=== PATIENT | male | born 1960 | race Caucasian/White ===

== ENCOUNTER → 2021-12-22 | Outpatient (CLI) | payer OTHER, MEDICAID ==
[~2021-12-22] MED LIST: ACET-654 PO; ADV250INH INH; ALBU20IN NEB; AMOX500T PO; BACL1TAB9 PO; CANA10002 PR; CARD120T4 PO; DOCU250C7 PO; IPRA2IN NEB; KLOR1TAB77 PO; LASI40TA PO; LIAL1.2T PO; LYRI150C PO; MAGN250T11 PO; MICR10CA PO; MS C200T PO; NICO14DI20 TD; NICO21DI3 EXT; NITR0.4S SL; NYST50SS OR; POTA10IN2 IV; POTA40IN IV; PRED-351 FT; PRED-351 OR; PRED10TA2 PO; REQU1TAB16 PO; SPIRIVA INH; VENTOLIN ROTAHALER
== END ==
LOC: M WUC 14:28
PROVIDERS: ATTEND Nurse Practitioner Family
DX: R07.81 Pleurodynia (principal)

== ENCOUNTER 2022-02-08 12:16 | Inpatient (IN) | payer OTHER ==
[~2022-02-08] VITALS: Ht 182.9 cm; Wt 90.9 kg
[2022-02-08] MEDS ORDERED: MORPHINE 2 MG/ML 1ML VIAL IV PRN ×2 (13:50→15:15)
[2022-02-08 14:18] LABS: HEMATOCRIT 41.7 % (42.0-52.0); HEMOGLOBIN 13.7 g/dl (13.5-17.5); MEAN CORPUSCULAR HEMOGLOBIN 30.2 pg (27.0-33.0); MEAN CORPUSCULAR HGB CONC 32.9 g/dl (32.0-36.5); MEAN CORPUSCULAR VOLUME 92.1 fl (80.0-96.0); PLATELET COUNT, AUTOMATED 329 10^3/uL (150-450); RED BLOOD COUNT 4.53 10^6/uL (4.30-6.10); WHITE BLOOD COUNT 14.8 10^3/uL (4.0-10.0)
[2022-02-08 14:42] LABS: RSV AMPLIFICATION NEGATIVE (NEGATIVE)
[2022-02-08 14:47] LABS: BLOOD UREA NITROGEN 15 MG/DL (7-18); CALCIUM LEVEL 9.4 MG/DL (8.8-10.2); CARBON DIOXIDE LEVEL 28 MEQ/L (21-32); CHLORIDE LEVEL 99 MEQ/L (98-107); CREATININE FOR GFR 0.51 MG/DL (0.70-1.30); GLOMERULAR FILTRATION RATE > 60.0 (>49); GLUCOSE, FASTING 105 MG/DL (70-100); POTASSIUM SERUM 4.1 MEQ/L (3.5-5.1); SODIUM LEVEL 132 MEQ/L (136-145)
[2022-02-08] MEDS ORDERED: NICOTINE 21MG/24HR 1 EA TRANSDERMAL TD ONE (15:15)
[2022-02-08] MEDS ORDERED: ALBU8.5H INH (16:12)
[2022-02-08] MEDS ORDERED: ROPI3TAB3 PO (16:12)
[2022-02-08] MEDS ORDERED: DOCU250C7 PO (16:12)
[2022-02-08] MEDS ORDERED: FLUT1BLS6 INH (16:12)
[2022-02-08] MEDS ORDERED: OMEP40CA5 PO (16:12)
[2022-02-08] MEDS ORDERED: ALBU2.5V10 INH (16:12)
[2022-02-08] MEDS ORDERED: GAVIPOW PO (16:12)
[2022-02-08] MEDS ORDERED: MESA0.37 PO (16:12)
[2022-02-08] MEDS ORDERED: TRAZ1TAB14 PO (16:12)
[2022-02-08] MEDS ORDERED: DILT240C28 PO (16:12)
[2022-02-08] MEDS ORDERED: POTA-151 PO (16:12)
[2022-02-08] MEDS ORDERED: DULO1CAP6 PO (16:12)
[2022-02-08] MEDS ORDERED: FINA5TAB2 PO (16:12)
[2022-02-08] MEDS ORDERED: HYDR-3363 PO (16:12)
[2022-02-08] MEDS ORDERED: TAMS1CAP17 PO (16:12)
[2022-02-08] MEDS ORDERED: ATOR1TAB21 PO (16:12)
[2022-02-08] MEDS ORDERED: PREG200C PO (16:12)
[2022-02-08] MEDS ORDERED: BUPR1FIL37 SL (16:12)
[2022-02-08] MEDS ORDERED: BUPR1FIL35 SL (16:12)
[2022-02-08] MEDS ORDERED: HOME MED LIST COMPLETE! XX SCH (16:15)
[2022-02-08] MEDS ORDERED: ALBUTEROL 90 MCG/ACT 8GM HFA INHALER INH PRN (16:20)
[2022-02-08] MEDS ORDERED: ALBUTEROL SULFATE 2.5 MG/0.5 ML INH NEB SOLN NEB PRN (16:35)
[2022-02-08] MEDS: MORPHINE 2 MG/ML 1ML VIAL IV PRN (17:23)
[2022-02-08 17:31] LABS: INR 1.02; PROTHROMBIN TIME 13.8 SECONDS (12.7-14.5)
[2022-02-08 17:50] VITALS: BP 126/81
[2022-02-08] MEDS: NS 1,000 ML IV SCH (18:07)
[2022-02-08] MEDS: rOPINIRole 1MG TAB PO SCH (18:07)
[2022-02-08] MEDS: ACETAMINOPHEN TAB 650MG DOSE (2X325MG) PO PRN (18:43)
[2022-02-08] MEDS: ADVAIR HFA 230/21MCG INHALER INH SCH (20:45)
[2022-02-08] MEDS: DOCUSATE SOD LIQ 100MG/10ML UDC PO SCH (20:51)
[2022-02-08] MEDS: PREGABALIN 100 MG CAP (LYRICA) PO SCH (20:52)
[2022-02-08] MEDS: TAMSULOSIN 0.4 MG CAP PO SCH (20:52)
[2022-02-08] MEDS: traZODone 50 MG TAB PO SCH (20:52)
[2022-02-08 22:00] VITALS: BP 124/66
[2022-02-09] VITALS (7 sets, daily range): BP systolic 90–132; BP diastolic 52–73
[2022-02-09] MEDS: MORPHINE 2 MG/ML 1ML VIAL IV PRN ×3 (02:52→20:26)
[2022-02-09] MEDS: NS 1,000 ML IV SCH ×2 (05:52→18:57)
[2022-02-09 06:43] LABS: HEMATOCRIT 40.6 % (42.0-52.0); HEMOGLOBIN 13.2 g/dl (13.5-17.5); MEAN CORPUSCULAR HEMOGLOBIN 30.3 pg (27.0-33.0); MEAN CORPUSCULAR HGB CONC 32.5 g/dl (32.0-36.5); MEAN CORPUSCULAR VOLUME 93.1 fl (80.0-96.0); PLATELET COUNT, AUTOMATED 294 10^3/uL (150-450); RED BLOOD COUNT 4.36 10^6/uL (4.30-6.10); WHITE BLOOD COUNT 12.6 10^3/uL (4.0-10.0)
[2022-02-09 07:19] LABS: ALBUMIN 2.8 GM/DL (3.2-5.2); ALT/SGPT 18 U/L (12-78); BILIRUBIN,TOTAL 0.6 MG/DL (0.2-1.0); BLOOD UREA NITROGEN 10 MG/DL (7-18); CALCIUM LEVEL 8.7 MG/DL (8.8-10.2); CARBON DIOXIDE LEVEL 30 MEQ/L (21-32); CHLORIDE LEVEL 103 MEQ/L (98-107); CREATININE FOR GFR 0.47 MG/DL (0.70-1.30); GLOMERULAR FILTRATION RATE > 60.0 (>49); GLUCOSE, FASTING 109 MG/DL (70-100); SODIUM LEVEL 138 MEQ/L (136-145)
[2022-02-09] MEDS: ADVAIR HFA 230/21MCG INHALER INH SCH ×2 (07:33→20:56)
[2022-02-09] MEDS: DOCUSATE SOD LIQ 100MG/10ML UDC PO SCH ×4 (08:31→20:29)
[2022-02-09] MEDS: FINASTERIDE 5MG TAB PO SCH (08:31)
[2022-02-09] MEDS: MIRALAX *UNIT DOSE* 17GM PACKET PO SCH (08:33)
[2022-02-09] MEDS: TAMSULOSIN 0.4 MG CAP PO SCH ×2 (08:33→20:30)
[2022-02-09] MEDS: OMEPRAZOLE 20MG CAP PO SCH (08:33)
[2022-02-09] MEDS: PREGABALIN 100 MG CAP (LYRICA) PO SCH ×3 (08:33→20:30)
[2022-02-09] MEDS: ATORVASTATIN 20 MG TAB PO SCH (08:33)
[2022-02-09] MEDS: DULoxetine 30MG CAPSULE (CYMBALTA) PO SCH (08:33)
[2022-02-09] MEDS ORDERED: MIRALAX *UNIT DOSE* 17GM PACKET PO SCH (09:00)
[2022-02-09] MEDS ORDERED: fentaNYL 100 MCG/2 ML INJECTION As Ordered ONE (13:13)
[2022-02-09] MEDS ORDERED: MIDAZOLAM INJ 2MG/2ML VIAL (J2250 PER 1MG) As Ordered ONE (13:13)
[2022-02-09] MEDS ORDERED: dexameTHASONE 4 MG/ML 1ML VIAL (J1100 PER 1MG) As Ordered ONE (13:14)
[2022-02-09] MEDS ORDERED: propofoL 200 MG/20 ML VIAL As Ordered ONE ×6 (13:14→17:09)
[2022-02-09] MEDS ORDERED: ONDANSETRON 4MG 2ML VIAL As Ordered ONE (13:14)
[2022-02-09] MEDS ORDERED: LIDOCAINE 2% 100MG/5ML SDV (FOR ANES.) As Ordered ONE (13:14)
[2022-02-09] MEDS ORDERED: ROCURONIUM BROMIDE 50 MG/5 ML VIAL As Ordered ONE (13:14)
[2022-02-09] MEDS ORDERED: KETAMINE HCL 200 MG/20 ML VIAL As Ordered ONE (13:50)
[2022-02-09] MEDS ORDERED: TRANEXAMIC ACID 100 MG/ML 10ML VIAL As Ordered ONE ×2 (14:09→16:42)
[2022-02-09] MEDS ORDERED: VANCOMYCIN 1000MG/20ML VIAL As Ordered ONE (14:09)
[2022-02-09] MEDS ORDERED: ceFAZolin 2 GM/D5W 50 ML IV BAG (J0690 PER 500MG) As Ordered ONE (14:46)
[2022-02-09] MEDS ORDERED: PHENYLEPHRINE 10MG/ML 1ML VIAL (J2370 PER 1) As Ordered ONE ×2 (15:03→16:31)
[2022-02-09] MEDS ORDERED: ePHEDrine SULFATE 25 MG/5 ML(5MG/ML) SYRINGE As Ordered ONE (15:03)
[2022-02-09] MEDS ORDERED: PHENYLephrine 500MCG 5ML (100MCG/ML) SYRINGE As Ordered ONE (15:03)
[2022-02-09] MEDS ORDERED: VASOPRESSIN INJ 20 UNITS/ML VIAL As Ordered ONE (15:12)
[2022-02-09] MEDS ORDERED: CALCIUM CHLORIDE 10% 1 GM/10 ML SYR As Ordered ONE (15:14)
[2022-02-09] MEDS ORDERED: LR 1,000 ML IV SCH (15:35)
[2022-02-09] MEDS ORDERED: ONDANSETRON 4MG 2ML VIAL IV PRN ×2 (15:35→17:55)
[2022-02-09] MEDS ORDERED: HYDROMORPHONE HCL 0.5 MG/ 0.5 ML SYRINGE (J1170 PER 1) IV PRN (15:35)
[2022-02-09] MEDS ORDERED: oxyCODONE 5MG TAB PO PRN ×2 (15:35→17:55)
[2022-02-09] MEDS ORDERED: MORPHINE 2 MG/ML 1ML VIAL IV PRN ×2 (15:35→17:50)
[2022-02-09] MEDS ORDERED: ACETAMINOPHEN 1000MG 100ML IV BTL (OFIRMEV) (J0131 PER 10MG) As Ordered ONE (16:16)
[2022-02-09] MEDS ORDERED: HYDROmorphone HCL 2MG/ML 1ML VIAL As Ordered ONE (17:31)
[2022-02-09] MEDS: PHENYLEPHRINE HCL INJ 10 MG in D5W 100 ML IV SCH ×2 (17:45→19:25)
[2022-02-09] MEDS: HYDROMORPHONE HCL 0.5 MG/ 0.5 ML SYRINGE (J1170 PER 1) IV PRN ×2 (17:52→17:57)
[2022-02-09] MEDS: rOPINIRole 1MG TAB PO SCH (18:57)
[2022-02-09] MEDS: traZODone 50 MG TAB PO SCH (20:29)
[2022-02-09] MEDS ORDERED: MORPHINE 2 MG/ML 1ML VIAL IV ONE (22:00)
[2022-02-09] MEDS ORDERED: KETOROLAC 30 MG/ML 1ML VIAL IV ONE (22:30)
[2022-02-09] MEDS ORDERED: SODIUM CHLORIDE 0.9% 1000ML IV ONE (22:30)
[2022-02-09] MEDS: ceFAZolin SOD 1 GM in D5W MINI-BAG PLUS 50 ML IV SCH (22:31)
[2022-02-10] MEDS ORDERED: NALOXONE INJ 0.4MG/1ML VIAL (J2310 PER 1MG) IV PRN (00:05)
[2022-02-10] MEDS: MORPHINE 2 MG/ML 1ML VIAL IV PRN ×3 (04:10→15:44)
[2022-02-10] MEDS: NS 1,000 ML IV SCH (04:11)
[2022-02-10 04:53] VITALS: BP 98/58
[2022-02-10 06:30] LABS: HEMATOCRIT 33.9 % (42.0-52.0); MEAN CORPUSCULAR HEMOGLOBIN 30.2 pg (27.0-33.0); MEAN CORPUSCULAR HGB CONC 31.9 g/dl (32.0-36.5); MEAN CORPUSCULAR VOLUME 94.7 fl (80.0-96.0); PLATELET COUNT, AUTOMATED 280 10^3/uL (150-450); RED BLOOD COUNT 3.58 10^6/uL (4.30-6.10); WHITE BLOOD COUNT 12.3 10^3/uL (4.0-10.0)
[2022-02-10] MEDS: ceFAZolin SOD 1 GM in D5W MINI-BAG PLUS 50 ML IV SCH ×2 (06:33→14:01)
[2022-02-10 06:38] VITALS: BP 121/69
[2022-02-10 06:55] LABS: HEMOGLOBIN 10.8 g/dl (13.5-17.5)
[2022-02-10 07:16] LABS: ALBUMIN 2.3 GM/DL (3.2-5.2); ALT/SGPT 17 U/L (12-78); BILIRUBIN,TOTAL 0.3 MG/DL (0.2-1.0); BLOOD UREA NITROGEN 14 MG/DL (7-18); CALCIUM LEVEL 8.5 MG/DL (8.8-10.2); CARBON DIOXIDE LEVEL 28 MEQ/L (21-32); CHLORIDE LEVEL 104 MEQ/L (98-107); CREATININE FOR GFR 0.52 MG/DL (0.70-1.30); GLOMERULAR FILTRATION RATE > 60.0 (>49); GLUCOSE, FASTING 106 MG/DL (70-100); POTASSIUM SERUM 4.5 MEQ/L (3.5-5.1); SODIUM LEVEL 137 MEQ/L (136-145); TOTAL PROTEIN 5.1 GM/DL (6.4-8.2)
[2022-02-10] MEDS: ADVAIR HFA 230/21MCG INHALER INH SCH ×2 (08:10→20:43)
[2022-02-10 09:00] LABS: NT-PRO BNP 78 PG/ML (<125)
[2022-02-10] MEDS: MIRALAX *UNIT DOSE* 17GM PACKET PO SCH (09:00)
[2022-02-10] MEDS: DOCUSATE SOD LIQ 100MG/10ML UDC PO SCH ×4 (09:00→21:01)
[2022-02-10] MEDS: PREGABALIN 100 MG CAP (LYRICA) PO SCH ×3 (09:40→21:02)
[2022-02-10] MEDS: OMEPRAZOLE 20MG CAP PO SCH (09:40)
[2022-02-10] MEDS: FINASTERIDE 5MG TAB PO SCH (09:40)
[2022-02-10] MEDS: TAMSULOSIN 0.4 MG CAP PO SCH ×2 (09:40→21:02)
[2022-02-10] MEDS: DULoxetine 30MG CAPSULE (CYMBALTA) PO SCH (09:40)
[2022-02-10] MEDS: ATORVASTATIN 20 MG TAB PO SCH (09:41)
[2022-02-10] MEDS: BACLOFEN 10 MG TAB PO PRN ×2 (09:41→18:20)
[2022-02-10] MEDS: oxyCODONE 5MG TAB PO PRN ×2 (09:42→13:59)
[2022-02-10 10:00] VITALS: BP 129/77
[2022-02-10] MEDS: ACETAMINOPHEN TAB 650MG DOSE (2X325MG) PO PRN ×2 (13:57→19:23)
[2022-02-10 14:00] VITALS: BP 101/52
[2022-02-10] MEDS: rOPINIRole 1MG TAB PO SCH (18:20)
[2022-02-10] MEDS: ENOXAPARIN 40MG/0.4ML SYRINGE (J1650 PER 10MG) SC SCH (18:21)
[2022-02-10] MEDS ORDERED: ISOVUE-370 76% 100ML VIAL As Ordered ONE (18:42)
[2022-02-10] MEDS ORDERED: PERCOCET 5MG/325MG TAB PO PRN (18:45)
[2022-02-10] MEDS: PERCOCET 5MG/325MG TAB PO PRN (21:02)
[2022-02-10] MEDS: traZODone 50 MG TAB PO SCH (21:02)
[2022-02-10 21:22] VITALS: BP 105/55
[2022-02-11] MEDS: PERCOCET 5MG/325MG TAB PO PRN ×4 (03:36→23:05)
[2022-02-11 05:33] VITALS: BP 108/53
[2022-02-11 06:44] LABS: HEMATOCRIT 33.2 % (42.0-52.0); HEMOGLOBIN 10.9 g/dl (13.5-17.5); MEAN CORPUSCULAR HEMOGLOBIN 30.6 pg (27.0-33.0); MEAN CORPUSCULAR HGB CONC 32.8 g/dl (32.0-36.5); MEAN CORPUSCULAR VOLUME 93.3 fl (80.0-96.0); PLATELET COUNT, AUTOMATED 314 10^3/uL (150-450); RED BLOOD COUNT 3.56 10^6/uL (4.30-6.10)
[2022-02-11 07:22] LABS: ALBUMIN 2.4 GM/DL (3.2-5.2); ALT/SGPT 13 U/L (12-78); BILIRUBIN,TOTAL 0.7 MG/DL (0.2-1.0); BLOOD UREA NITROGEN 10 MG/DL (7-18); CALCIUM LEVEL 8.4 MG/DL (8.8-10.2); CARBON DIOXIDE LEVEL 30 MEQ/L (21-32); CHLORIDE LEVEL 102 MEQ/L (98-107); CREATININE FOR GFR 0.45 MG/DL (0.70-1.30); GLOMERULAR FILTRATION RATE > 60.0 (>49); GLUCOSE, FASTING 98 MG/DL (70-100); POTASSIUM SERUM 3.9 MEQ/L (3.5-5.1); SODIUM LEVEL 136 MEQ/L (136-145); TOTAL PROTEIN 5.4 GM/DL (6.4-8.2)
[2022-02-11] MEDS: ADVAIR HFA 230/21MCG INHALER INH SCH ×2 (07:26→19:07)
[2022-02-11] MEDS: MIRALAX *UNIT DOSE* 17GM PACKET PO SCH (09:00)
[2022-02-11] MEDS: MOM 30ML SUSPENSION UDC PO SCH (09:00)
[2022-02-11] MEDS: DOCUSATE SOD LIQ 100MG/10ML UDC PO SCH ×3 (09:03→20:22)
[2022-02-11] MEDS: TAMSULOSIN 0.4 MG CAP PO SCH ×2 (09:03→20:22)
[2022-02-11] MEDS: PREGABALIN 100 MG CAP (LYRICA) PO SCH ×3 (09:04→20:22)
[2022-02-11] MEDS: DULoxetine 30MG CAPSULE (CYMBALTA) PO SCH (09:04)
[2022-02-11] MEDS: ATORVASTATIN 20 MG TAB PO SCH (09:06)
[2022-02-11] MEDS: FINASTERIDE 5MG TAB PO SCH (09:06)
[2022-02-11] MEDS: ENOXAPARIN 40MG/0.4ML SYRINGE (J1650 PER 10MG) SC SCH (09:06)
[2022-02-11] MEDS: OMEPRAZOLE 20MG CAP PO SCH (09:06)
[2022-02-11] MEDS: BACLOFEN 10 MG TAB PO PRN ×3 (09:06→23:04)
[2022-02-11 14:00] VITALS: BP 110/58
[2022-02-11] MEDS: rOPINIRole 1MG TAB PO SCH (17:13)
[2022-02-11] MEDS: traZODone 50 MG TAB PO SCH (20:22)
[2022-02-11 20:34] VITALS: BP 104/71
[2022-02-12 05:57] VITALS: BP 97/71
[2022-02-12 06:23] LABS: HEMATOCRIT 33.4 % (42.0-52.0); MEAN CORPUSCULAR HEMOGLOBIN 30.9 pg (27.0-33.0); MEAN CORPUSCULAR HGB CONC 32.9 g/dl (32.0-36.5); MEAN CORPUSCULAR VOLUME 93.8 fl (80.0-96.0); PLATELET COUNT, AUTOMATED 339 10^3/uL (150-450); RED BLOOD COUNT 3.56 10^6/uL (4.30-6.10); WHITE BLOOD COUNT 12.4 10^3/uL (4.0-10.0)
[2022-02-12 06:48] LABS: ALBUMIN 2.4 GM/DL (3.2-5.2); ALT/SGPT 16 U/L (12-78); BILIRUBIN,TOTAL 0.6 MG/DL (0.2-1.0); BLOOD UREA NITROGEN 9 MG/DL (7-18); CALCIUM LEVEL 8.8 MG/DL (8.8-10.2); CARBON DIOXIDE LEVEL 31 MEQ/L (21-32); CHLORIDE LEVEL 103 MEQ/L (98-107); CREATININE FOR GFR 0.48 MG/DL (0.70-1.30); GLOMERULAR FILTRATION RATE > 60.0 (>49); GLUCOSE, FASTING 103 MG/DL (70-100); POTASSIUM SERUM 4.3 MEQ/L (3.5-5.1); SODIUM LEVEL 137 MEQ/L (136-145); TOTAL PROTEIN 5.5 GM/DL (6.4-8.2)
[2022-02-12] MEDS: ADVAIR HFA 230/21MCG INHALER INH SCH ×2 (07:26→19:35)
[2022-02-12 08:00] VITALS: BP 104/68
[2022-02-12] MEDS: MESALAMINE 0.375 GM PO SCH (09:00)
[2022-02-12] MEDS: MIRALAX *UNIT DOSE* 17GM PACKET PO SCH (09:00)
[2022-02-12] MEDS: MOM 30ML SUSPENSION UDC PO SCH (09:00)
[2022-02-12] MEDS: DOCUSATE SOD LIQ 100MG/10ML UDC PO SCH ×3 (09:00→19:45)
[2022-02-12] MEDS: PERCOCET 5MG/325MG TAB PO PRN ×3 (09:19→21:42)
[2022-02-12] MEDS: TAMSULOSIN 0.4 MG CAP PO SCH ×2 (10:05→20:32)
[2022-02-12] MEDS: ATORVASTATIN 20 MG TAB PO SCH (10:05)
[2022-02-12] MEDS: OMEPRAZOLE 20MG CAP PO SCH (10:06)
[2022-02-12] MEDS: DULoxetine 30MG CAPSULE (CYMBALTA) PO SCH (10:07)
[2022-02-12] MEDS: ENOXAPARIN 40MG/0.4ML SYRINGE (J1650 PER 10MG) SC SCH (10:21)
[2022-02-12] MEDS: FINASTERIDE 5MG TAB PO SCH (10:21)
[2022-02-12] MEDS: PREGABALIN 100 MG CAP (LYRICA) PO SCH ×3 (10:21→20:32)
[2022-02-12] MEDS: rOPINIRole 1MG TAB PO SCH (17:37)
[2022-02-12] MEDS: BACLOFEN 10 MG TAB PO PRN (17:37)
[2022-02-12] MEDS: traZODone 50 MG TAB PO SCH (20:32)
[2022-02-13] MEDS: PERCOCET 5MG/325MG TAB PO PRN ×3 (05:25→20:44)
[2022-02-13 06:00] VITALS: BP 121/68
[2022-02-13 06:17] LABS: HEMATOCRIT 34.7 % (42.0-52.0); HEMOGLOBIN 11.1 g/dl (13.5-17.5); MEAN CORPUSCULAR HEMOGLOBIN 29.9 pg (27.0-33.0); MEAN CORPUSCULAR VOLUME 93.5 fl (80.0-96.0); PLATELET COUNT, AUTOMATED 384 10^3/uL (150-450); RED BLOOD COUNT 3.71 10^6/uL (4.30-6.10); WHITE BLOOD COUNT 13.1 10^3/uL (4.0-10.0)
[2022-02-13 06:56] LABS: ALBUMIN 2.4 GM/DL (3.2-5.2); ALT/SGPT 22 U/L (12-78); BILIRUBIN,TOTAL 0.6 MG/DL (0.2-1.0); BLOOD UREA NITROGEN 10 MG/DL (7-18); CALCIUM LEVEL 8.6 MG/DL (8.8-10.2); CARBON DIOXIDE LEVEL 32 MEQ/L (21-32); CHLORIDE LEVEL 102 MEQ/L (98-107); CREATININE FOR GFR 0.52 MG/DL (0.70-1.30); GLOMERULAR FILTRATION RATE > 60.0 (>49); GLUCOSE, FASTING 98 MG/DL (70-100); POTASSIUM SERUM 4.6 MEQ/L (3.5-5.1); SODIUM LEVEL 137 MEQ/L (136-145); TOTAL PROTEIN 5.9 GM/DL (6.4-8.2)
[2022-02-13] MEDS: ADVAIR HFA 230/21MCG INHALER INH SCH ×2 (07:48→19:30)
[2022-02-13] MEDS: ENOXAPARIN 40MG/0.4ML SYRINGE (J1650 PER 10MG) SC SCH (08:35)
[2022-02-13] MEDS: PREGABALIN 100 MG CAP (LYRICA) PO SCH ×3 (08:35→20:42)
[2022-02-13] MEDS: TAMSULOSIN 0.4 MG CAP PO SCH ×2 (08:35→20:43)
[2022-02-13] MEDS: FINASTERIDE 5MG TAB PO SCH (08:35)
[2022-02-13] MEDS: ATORVASTATIN 20 MG TAB PO SCH (08:43)
[2022-02-13] MEDS: DOCUSATE SOD LIQ 100MG/10ML UDC PO SCH ×3 (08:43→20:04)
[2022-02-13] MEDS: MOM 30ML SUSPENSION UDC PO SCH (08:43)
[2022-02-13] MEDS: OMEPRAZOLE 20MG CAP PO SCH (08:43)
[2022-02-13] MEDS: MIRALAX *UNIT DOSE* 17GM PACKET PO SCH (08:43)
[2022-02-13] MEDS: DULoxetine 30MG CAPSULE (CYMBALTA) PO SCH (08:43)
[2022-02-13] MEDS: MESALAMINE 0.375 GM PO SCH (09:00)
[2022-02-13] MEDS: ceFAZolin SOD 1 GM in D5W MINI-BAG PLUS 50 ML IV SCH ×2 (14:19→21:11)
[2022-02-13] MEDS: rOPINIRole 1MG TAB PO SCH (16:47)
[2022-02-13] MEDS: traZODone 50 MG TAB PO SCH (20:42)
[2022-02-14 03:17] VITALS: BP 111/70
[2022-02-14] MEDS: PERCOCET 5MG/325MG TAB PO PRN ×3 (03:34→21:25)
[2022-02-14] MEDS: ceFAZolin SOD 1 GM in D5W MINI-BAG PLUS 50 ML IV SCH ×3 (05:02→22:59)
[2022-02-14 07:01] LABS: HEMATOCRIT 34.7 % (42.0-52.0); MEAN CORPUSCULAR HEMOGLOBIN 29.3 pg (27.0-33.0); MEAN CORPUSCULAR HGB CONC 31.7 g/dl (32.0-36.5); MEAN CORPUSCULAR VOLUME 92.5 fl (80.0-96.0); PLATELET COUNT, AUTOMATED 456 10^3/uL (150-450); RED BLOOD COUNT 3.75 10^6/uL (4.30-6.10); WHITE BLOOD COUNT 11.6 10^3/uL (4.0-10.0)
[2022-02-14 07:38] LABS: ALBUMIN 2.3 GM/DL (3.2-5.2); ALT/SGPT 23 U/L (12-78); BILIRUBIN,TOTAL 0.5 MG/DL (0.2-1.0); BLOOD UREA NITROGEN 7 MG/DL (7-18); CARBON DIOXIDE LEVEL 29 MEQ/L (21-32); CHLORIDE LEVEL 104 MEQ/L (98-107); CREATININE FOR GFR 0.53 MG/DL (0.70-1.30); GLOMERULAR FILTRATION RATE > 60.0 (>49); GLUCOSE, FASTING 98 MG/DL (70-100); POTASSIUM SERUM 4.1 MEQ/L (3.5-5.1); SODIUM LEVEL 137 MEQ/L (136-145); TOTAL PROTEIN 6.4 GM/DL (6.4-8.2)
[2022-02-14] MEDS: PREGABALIN 100 MG CAP (LYRICA) PO SCH ×3 (07:53→21:23)
[2022-02-14] MEDS: OMEPRAZOLE 20MG CAP PO SCH (07:53)
[2022-02-14] MEDS: ACETAMINOPHEN TAB 650MG DOSE (2X325MG) PO PRN (07:53)
[2022-02-14] MEDS: BACLOFEN 10 MG TAB PO PRN ×2 (07:53→15:14)
[2022-02-14] MEDS: TAMSULOSIN 0.4 MG CAP PO SCH ×2 (07:53→21:23)
[2022-02-14] MEDS: DULoxetine 30MG CAPSULE (CYMBALTA) PO SCH (07:54)
[2022-02-14] MEDS: FINASTERIDE 5MG TAB PO SCH (07:54)
[2022-02-14] MEDS: ATORVASTATIN 20 MG TAB PO SCH (07:54)
[2022-02-14] MEDS: DOCUSATE SOD LIQ 100MG/10ML UDC PO SCH ×3 (07:55→21:00)
[2022-02-14] MEDS: MIRALAX *UNIT DOSE* 17GM PACKET PO SCH (07:55)
[2022-02-14] MEDS: MOM 30ML SUSPENSION UDC PO SCH (07:55)
[2022-02-14 08:00] VITALS: BP 112/73
[2022-02-14] MEDS: ADVAIR HFA 230/21MCG INHALER INH SCH ×2 (08:21→20:00)
[2022-02-14] MEDS: MESALAMINE 0.375 GM PO SCH (09:00)
[2022-02-14] MEDS: rOPINIRole 1MG TAB PO SCH (17:31)
[2022-02-14] MEDS: traZODone 50 MG TAB PO SCH (21:23)
[2022-02-15 05:25] VITALS: BP 117/71
[2022-02-15 05:36] LABS: HEMOGLOBIN 10.5 g/dl (13.5-17.5); MEAN CORPUSCULAR HEMOGLOBIN 30.1 pg (27.0-33.0); MEAN CORPUSCULAR HGB CONC 32.8 g/dl (32.0-36.5); MEAN CORPUSCULAR VOLUME 91.7 fl (80.0-96.0); PLATELET COUNT, AUTOMATED 465 10^3/uL (150-450); RED BLOOD COUNT 3.49 10^6/uL (4.30-6.10); WHITE BLOOD COUNT 11.5 10^3/uL (4.0-10.0)
[2022-02-15] MEDS: ceFAZolin SOD 1 GM in D5W MINI-BAG PLUS 50 ML IV SCH ×3 (05:38→21:25)
[2022-02-15] MEDS: PERCOCET 5MG/325MG TAB PO PRN ×3 (05:42→21:26)
[2022-02-15 06:20] LABS: ALBUMIN 2.1 GM/DL (3.2-5.2); ALT/SGPT 21 U/L (12-78); BILIRUBIN,TOTAL 0.4 MG/DL (0.2-1.0); BLOOD UREA NITROGEN 9 MG/DL (7-18); CALCIUM LEVEL 8.6 MG/DL (8.8-10.2); CARBON DIOXIDE LEVEL 28 MEQ/L (21-32); CHLORIDE LEVEL 105 MEQ/L (98-107); CREATININE FOR GFR 0.44 MG/DL (0.70-1.30); GLOMERULAR FILTRATION RATE > 60.0 (>49); GLUCOSE, FASTING 96 MG/DL (70-100); POTASSIUM SERUM 4.4 MEQ/L (3.5-5.1); SODIUM LEVEL 137 MEQ/L (136-145); TOTAL PROTEIN 5.4 GM/DL (6.4-8.2)
[2022-02-15] MEDS: MESALAMINE 0.375 GM PO SCH ×2 (07:38→09:00)
[2022-02-15] MEDS: ADVAIR HFA 230/21MCG INHALER INH SCH ×2 (08:23→19:24)
[2022-02-15] MEDS: DULoxetine 30MG CAPSULE (CYMBALTA) PO SCH (08:50)
[2022-02-15] MEDS: ACETAMINOPHEN TAB 650MG DOSE (2X325MG) PO PRN (08:50)
[2022-02-15] MEDS: ATORVASTATIN 20 MG TAB PO SCH (08:50)
[2022-02-15] MEDS: FINASTERIDE 5MG TAB PO SCH (08:50)
[2022-02-15] MEDS: OMEPRAZOLE 20MG CAP PO SCH (08:50)
[2022-02-15] MEDS: PREGABALIN 100 MG CAP (LYRICA) PO SCH ×3 (08:50→21:25)
[2022-02-15] MEDS: DOCUSATE SOD LIQ 100MG/10ML UDC PO SCH ×3 (08:51→21:00)
[2022-02-15] MEDS: MIRALAX *UNIT DOSE* 17GM PACKET PO SCH (08:51)
[2022-02-15] MEDS: TAMSULOSIN 0.4 MG CAP PO SCH ×2 (08:51→21:26)
[2022-02-15] MEDS: MOM 30ML SUSPENSION UDC PO SCH (08:51)
[2022-02-15] MEDS: BACLOFEN 10 MG TAB PO PRN ×2 (10:32→21:25)
[2022-02-15] MEDS: rOPINIRole 1MG TAB PO SCH (16:45)
[2022-02-15] MEDS: traZODone 50 MG TAB PO SCH (21:25)
[2022-02-16] MEDS: PERCOCET 5MG/325MG TAB PO PRN ×3 (04:32→16:56)
[2022-02-16] MEDS: ceFAZolin SOD 1 GM in D5W MINI-BAG PLUS 50 ML IV SCH ×3 (04:33→14:18)
[2022-02-16 05:55] LABS: HEMATOCRIT 32.1 % (42.0-52.0); HEMOGLOBIN 10.5 g/dl (13.5-17.5); MEAN CORPUSCULAR HEMOGLOBIN 30.2 pg (27.0-33.0); MEAN CORPUSCULAR HGB CONC 32.7 g/dl (32.0-36.5); MEAN CORPUSCULAR VOLUME 92.2 fl (80.0-96.0); PLATELET COUNT, AUTOMATED 493 10^3/uL (150-450); RED BLOOD COUNT 3.48 10^6/uL (4.30-6.10); WHITE BLOOD COUNT 10.7 10^3/uL (4.0-10.0)
[2022-02-16 06:12] VITALS: BP 109/65
[2022-02-16 06:35] LABS: ALBUMIN 2.3 GM/DL (3.2-5.2); ALT/SGPT 20 U/L (12-78); BILIRUBIN,TOTAL 0.5 MG/DL (0.2-1.0); BLOOD UREA NITROGEN 8 MG/DL (7-18); CALCIUM LEVEL 8.6 MG/DL (8.8-10.2); CARBON DIOXIDE LEVEL 28 MEQ/L (21-32); CHLORIDE LEVEL 104 MEQ/L (98-107); CREATININE FOR GFR 0.52 MG/DL (0.70-1.30); GLOMERULAR FILTRATION RATE > 60.0 (>49); GLUCOSE, FASTING 106 MG/DL (70-100); POTASSIUM SERUM 4.2 MEQ/L (3.5-5.1); SODIUM LEVEL 137 MEQ/L (136-145); TOTAL PROTEIN 5.8 GM/DL (6.4-8.2)
[2022-02-16] MEDS: ADVAIR HFA 230/21MCG INHALER INH SCH ×2 (07:22→20:19)
[2022-02-16] MEDS: MOM 30ML SUSPENSION UDC PO SCH (07:42)
[2022-02-16] MEDS: MIRALAX *UNIT DOSE* 17GM PACKET PO SCH (07:42)
[2022-02-16] MEDS: DOCUSATE SOD LIQ 100MG/10ML UDC PO SCH (07:42)
[2022-02-16] MEDS: TAMSULOSIN 0.4 MG CAP PO SCH ×2 (09:01→20:32)
[2022-02-16] MEDS: OMEPRAZOLE 20MG CAP PO SCH (09:01)
[2022-02-16] MEDS: DULoxetine 30MG CAPSULE (CYMBALTA) PO SCH (09:01)
[2022-02-16] MEDS: MESALAMINE 0.375 GM PO SCH (09:02)
[2022-02-16] MEDS: ATORVASTATIN 20 MG TAB PO SCH (09:02)
[2022-02-16] MEDS: FINASTERIDE 5MG TAB PO SCH (09:02)
[2022-02-16] MEDS: PREGABALIN 100 MG CAP (LYRICA) PO SCH ×3 (09:02→20:31)
[2022-02-16] MEDS: BACLOFEN 10 MG TAB PO PRN ×2 (10:32→20:31)
[2022-02-16] MEDS ORDERED: MIRALAX *UNIT DOSE* 17GM PACKET PO PRN (11:45)
[2022-02-16] MEDS ORDERED: PILL CUTTER 1 EACH XX PRN (12:20)
[2022-02-16] MEDS: rOPINIRole 1MG TAB PO SCH (16:56)
[2022-02-16] MEDS: traZODone 50 MG TAB PO SCH (20:32)
[2022-02-17] MEDS: PERCOCET 5MG/325MG TAB PO PRN ×4 (00:41→18:44)
[2022-02-17 05:23] VITALS: BP 117/68
[2022-02-17 06:30] LABS: HEMATOCRIT 31.1 % (42.0-52.0); HEMOGLOBIN 10.1 g/dl (13.5-17.5); MEAN CORPUSCULAR HEMOGLOBIN 30.8 pg (27.0-33.0); MEAN CORPUSCULAR HGB CONC 32.5 g/dl (32.0-36.5); MEAN CORPUSCULAR VOLUME 94.8 fl (80.0-96.0); PLATELET COUNT, AUTOMATED 502 10^3/uL (150-450); RED BLOOD COUNT 3.28 10^6/uL (4.30-6.10); WHITE BLOOD COUNT 10.7 10^3/uL (4.0-10.0)
[2022-02-17] MEDS: MESALAMINE 0.375 GM PO SCH (06:40)
[2022-02-17 07:04] LABS: ALBUMIN 2.2 GM/DL (3.2-5.2); ALT/SGPT 15 U/L (12-78); BILIRUBIN,TOTAL 0.4 MG/DL (0.2-1.0); BLOOD UREA NITROGEN 9 MG/DL (7-18); CALCIUM LEVEL 8.8 MG/DL (8.8-10.2); CARBON DIOXIDE LEVEL 29 MEQ/L (21-32); CHLORIDE LEVEL 106 MEQ/L (98-107); CREATININE FOR GFR 0.49 MG/DL (0.70-1.30); GLOMERULAR FILTRATION RATE > 60.0 (>49); GLUCOSE, FASTING 94 MG/DL (70-100); POTASSIUM SERUM 4.8 MEQ/L (3.5-5.1); SODIUM LEVEL 138 MEQ/L (136-145); TOTAL PROTEIN 5.6 GM/DL (6.4-8.2)
[2022-02-17] MEDS: ADVAIR HFA 230/21MCG INHALER INH SCH ×2 (07:41→20:12)
[2022-02-17 09:00] VITALS: BP 102/54
[2022-02-17] MEDS: MOM 30ML SUSPENSION UDC PO SCH (09:00)
[2022-02-17] MEDS: PREGABALIN 100 MG CAP (LYRICA) PO SCH ×3 (09:15→20:08)
[2022-02-17] MEDS: FINASTERIDE 5MG TAB PO SCH (09:16)
[2022-02-17] MEDS: TAMSULOSIN 0.4 MG CAP PO SCH ×2 (09:16→20:08)
[2022-02-17] MEDS: ATORVASTATIN 20 MG TAB PO SCH (09:18)
[2022-02-17] MEDS: DULoxetine 30MG CAPSULE (CYMBALTA) PO SCH (09:18)
[2022-02-17] MEDS: OMEPRAZOLE 20MG CAP PO SCH (09:18)
[2022-02-17] MEDS: BACLOFEN 10 MG TAB PO PRN ×2 (11:13→20:08)
[2022-02-17] MEDS: rOPINIRole 1MG TAB PO SCH (18:41)
[2022-02-17] MEDS: traZODone 50 MG TAB PO SCH (20:08)
[2022-02-17] MEDS ORDERED: ADVAIR HFA 115/21MCG INHALER INH SCH (21:00)
[2022-02-18] MEDS: PERCOCET 5MG/325MG TAB PO PRN ×2 (01:26→10:41)
[2022-02-18 06:00] VITALS: BP_SYST 100; BP_SYST 148; BP_DIAS 51; BP_DIAS 88
[2022-02-18] MEDS: MESALAMINE 0.375 GM PO SCH (06:43)
[2022-02-18] MEDS: BACLOFEN 10 MG TAB PO PRN (06:46)
[2022-02-18] MEDS: OMEPRAZOLE 20MG CAP PO SCH (07:59)
[2022-02-18] MEDS: TAMSULOSIN 0.4 MG CAP PO SCH (07:59)
[2022-02-18] MEDS: ATORVASTATIN 20 MG TAB PO SCH (07:59)
[2022-02-18] MEDS: FINASTERIDE 5MG TAB PO SCH (07:59)
[2022-02-18 08:02] VITALS: BP 104/60
[2022-02-18] MEDS: PREGABALIN 100 MG CAP (LYRICA) PO SCH (08:03)
[2022-02-18] MEDS: DULoxetine 30MG CAPSULE (CYMBALTA) PO SCH (08:03)
[2022-02-18] MEDS: ADVAIR HFA 230/21MCG INHALER INH SCH (08:04)
[2022-02-18] MEDS ORDERED: HYDR-3713 PO (12:26)
[2022-02-18] MEDS ORDERED: ACET1TAB55 PO (12:26)
[2022-02-18] MEDS ORDERED: DILT120C89 PO (12:27)
== END 2022-02-18 14:25 | disposition home health service (06) | DRG 301 ==
LOC: M ED 12:16 → M ED INP 15:15 → ENRESERV 16:52 → M MSPAV 17:48 → M MS5PR 02-10 09:25
PROVIDERS: ADMIT Internal Medicine; ATTEND Family Medicine
PROC: 0SRR0JZ Replacement of Right Hip Joint, Femoral Surface with Synthetic Substitute, Open Approach (ICD-10-PCS; principal; 2022-02-09 14:00)
DX: S72.011A Unspecified intracapsular fracture of right femur, initial encounter for closed fracture (principal); I50.32 Chronic diastolic (congestive) heart failure; K50.90 Crohn's disease, unspecified, without complications; J44.9 Chronic obstructive pulmonary disease, unspecified; R91.1 Solitary pulmonary nodule; M79.7 Fibromyalgia; M54.9 Dorsalgia, unspecified; G25.81 Restless legs syndrome; E87.6 Hypokalemia; W18.30XA Fall on same level, unspecified, initial encounter; G89.29 Other chronic pain; M62.838 Other muscle spasm; K59.00 Constipation, unspecified; R19.7 Diarrhea, unspecified; Z66 Do not resuscitate; J98.11 Atelectasis; R25.1 Tremor, unspecified; Y92.9 Unspecified place or not applicable; Y93.9 Activity, unspecified; Y99.8 Other external cause status; F17.200 Nicotine dependence, unspecified, uncomplicated; Z88.5 Allergy status to narcotic agent; Z79.899 Other long term (current) drug therapy; Z91.048 Other nonmedicinal substance allergy status

== ENCOUNTER → 2022-03-07 | Outpatient (CLI) | payer OTHER ==
[~2022-03-07] MED LIST changes: +ACET1TAB55 PO; +ALBU2.5V10 INH; +ALBU8.5H INH; +ATOR1TAB21 PO; +BUPR1FIL35 SL; +BUPR1FIL37 SL; +DILT120C89 PO; +DILT240C28 PO; +DULO1CAP6 PO; +FINA5TAB2 PO; +FLUT1BLS6 INH; +GAVIPOW PO; +HYDR-3363 PO; +HYDR-3713 PO; +MESA0.37 PO; +OMEP40CA5 PO; +POTA-151 PO; +PREG200C PO; +ROPI3TAB3 PO; +TAMS1CAP17 PO; +TRAZ1TAB14 PO
== END ==
LOC: M SOG 13:48
PROVIDERS: ATTEND Physician Assistant
DX: S72.001A Fracture of unspecified part of neck of right femur, initial encounter for closed fracture (principal); X58.XXXA Exposure to other specified factors, initial encounter; Y92.89 Other specified places as the place of occurrence of the external cause

== ENCOUNTER → 2022-03-28 | Outpatient (CLI) | payer OTHER | LOC: M SOG 12:59 | PROVIDERS: ATTEND Orthopaedic Surgery Hand Surgery | DX: S72.001D Fracture of unspecified part of neck of right femur, subsequent encounter for closed fracture with routine healing (principal); Z96.641 Presence of right artificial hip joint ==

== ENCOUNTER → 2022-04-27 | Outpatient (CLI) | payer OTHER | LOC: M PAIN 09:00 | PROVIDERS: ATTEND Anesthesiology | DX: M25.551 Pain in right hip (principal); M54.50 Low back pain, unspecified; M54.2 Cervicalgia; N40.0 Benign prostatic hyperplasia without lower urinary tract symptoms; I10 Essential (primary) hypertension; F32.A Depression, unspecified; K51.90 Ulcerative colitis, unspecified, without complications; G25.81 Restless legs syndrome; J44.9 Chronic obstructive pulmonary disease, unspecified; M79.7 Fibromyalgia; Z96.641 Presence of right artificial hip joint; F17.210 Nicotine dependence, cigarettes, uncomplicated; Z79.899 Other long term (current) drug therapy; Z88.5 Allergy status to narcotic agent ==

== ENCOUNTER → 2022-05-03 | Outpatient (CLI) | payer OTHER | LOC: M SOG 08:46 | PROVIDERS: ATTEND Orthopaedic Surgery Hand Surgery | DX: S72.001D Fracture of unspecified part of neck of right femur, subsequent encounter for closed fracture with routine healing (principal); Z96.641 Presence of right artificial hip joint ==

== ENCOUNTER → 2022-05-10 | Outpatient (CLI) | payer OTHER ==
[2022-05-10 13:35] LABS: BASO # 0.1 10^3/uL (0.0-0.2); BASO % 0.6 % (0.0-1.0); EOS # 0.3 10^3/uL (0.0-0.5); EOS % 2.9 % (0.0-3.0); HEMATOCRIT 47.3 % (42.0-52.0); HEMOGLOBIN 14.1 g/dl (13.5-17.5); LYMPH # 2.9 10^3/uL (1.5-5.0); LYMPH % 30.7 % (24.0-44.0); MEAN CORPUSCULAR HEMOGLOBIN 29.4 pg (27.0-33.0); MEAN CORPUSCULAR HGB CONC 29.8 g/dl (32.0-36.5); MEAN CORPUSCULAR VOLUME 98.7 fl (80.0-96.0); MONO # 0.8 10^3/uL (0.0-0.8); MONO % 8.4 % (2.0-8.0); NEUTROPHILS # 5.3 10^3/uL (1.5-8.5); NEUTROPHILS % 57.2 % (36.0-66.0); PLATELET COUNT, AUTOMATED 278 10^3/uL (150-450); RED BLOOD COUNT 4.79 10^6/uL (4.30-6.10); WHITE BLOOD COUNT 9.3 10^3/uL (4.0-10.0)
[2022-05-10 14:27] LABS: HEMOGLOBIN A1c 5.2 % (4.0-6.0)
[2022-05-10 14:42] LABS: ALBUMIN 3.8 G/DL (3.2-5.2); ALT/SGPT 20 U/L (7.0-40); BILIRUBIN,TOTAL 0.3 MG/DL (0.3-1.2); BLOOD UREA NITROGEN 13 MG/DL (9-23); CALCIUM LEVEL 8.9 MG/DL (8.3-10.6); CARBON DIOXIDE LEVEL 30 MMOL/L (20-31); CHLORIDE LEVEL 101 MMOL/L (98-107); CHOLESTEROL LEVEL 127 MG/DL (<200); CREATININE FOR GFR 0.51 MG/DL (0.70-1.30); FOLATE 13.44 NG/ML (>5.4); FREE T4 0.95 NG/DL (0.89-1.76); GLOMERULAR FILTRATION RATE > 60.0 (>49); GLUCOSE, FASTING 102 MG/DL (74-106); HDL CHOLESTEROL 63.4 MG/DL (>40); LDL CHOLESTEROL 47.8 MG/DL (<100); NON-HDL-C 64 MG/DL; POTASSIUM SERUM 4.7 MMOL/L (3.5-5.1); SODIUM LEVEL 138 MMOL/L (136-145); THYROID STIMULATING HORMONE 1.798 uIU/ML (0.55-4.78); TOTAL 25(OH) VITAMIN D 12.1 NG/ML (20.0-100.0); TOTAL PROTEIN 6.9 G/DL (5.7-8.2); TRIGLYCERIDES LEVEL 79 MG/DL (<150); VITAMIN B12 LEVEL 340 PG/ML (211-911)
== END ==
LOC: M PLALAB 11:16
PROVIDERS: ATTEND Nurse Practitioner Family
DX: E78.5 Hyperlipidemia, unspecified (principal); I10 Essential (primary) hypertension; N40.0 Benign prostatic hyperplasia without lower urinary tract symptoms; E55.9 Vitamin D deficiency, unspecified

== ENCOUNTER → 2022-05-30 | Outpatient (CLI) | payer OTHER | LOC: M PAIN 10:00 | PROVIDERS: ATTEND Nurse Practitioner Family | DX: M54.50 Low back pain, unspecified (principal); G89.29 Other chronic pain; I10 Essential (primary) hypertension; G25.81 Restless legs syndrome; J44.9 Chronic obstructive pulmonary disease, unspecified; M79.7 Fibromyalgia; F17.200 Nicotine dependence, unspecified, uncomplicated; Z86.59 Personal history of other mental and behavioral disorders; Z96.641 Presence of right artificial hip joint; Z88.5 Allergy status to narcotic agent; Z79.899 Other long term (current) drug therapy ==

== ENCOUNTER → 2022-08-29 | Outpatient (CLI) | payer OTHER | LOC: M PAIN 09:45 | PROVIDERS: ATTEND Nurse Practitioner Family | DX: M54.50 Low back pain, unspecified (principal); N40.0 Benign prostatic hyperplasia without lower urinary tract symptoms; I10 Essential (primary) hypertension; F32.A Depression, unspecified; K51.90 Ulcerative colitis, unspecified, without complications; G25.81 Restless legs syndrome; J44.9 Chronic obstructive pulmonary disease, unspecified; M79.7 Fibromyalgia; F17.200 Nicotine dependence, unspecified, uncomplicated; Z79.899 Other long term (current) drug therapy; Z88.5 Allergy status to narcotic agent ==